=== PATIENT | female | born 1970 | race Caucasian/White ===

== ENCOUNTER 2017-02-10 10:12 | Inpatient (IN) | payer OTHER ==
[~2017-02-10] VITALS: Ht 157.5 cm; Wt 93.0 kg
[2017-02-10] MEDS ORDERED: NITROGLYCERIN 0.4MG TABLET SL SL ONE (10:45)
[2017-02-10] MEDS ORDERED: ASPIRIN 81MG TABLET PO ONE (10:45)
[2017-02-10 11:27] LABS: BASOPHILS % 0.7 % (0.0-2.0); HEMATOCRIT. 28.5 % (36.0-48.0); HEMOGLOBIN. 8.6 g/dL (12.0-16.0); MEAN CORPUSCULAR HEMOGLOBIN 19.6 pg (28.0-32.0); MEAN CORPUSCULAR VOLUME 64.6 fL (81.0-99.0); MEAN PLATELET VOLUME 6.7 fl (7.4-10.4); MONOCYTES % 4.8 % (2.0-8.0); NEUTROPHILS % 76.5 % (40.0-76.0); PLATELET 493 x1000/uL (130-400); RED BLOOD CELL COUNT 4.41 mill/uL (4.2-5.4); RED CELL DISTRIBUTION WIDTH 18.9 % (11.6-14.6)
[2017-02-10 11:38] LABS: PARTIAL THROMBOPLASTIN TIME 23.1 sec (24.0-34.0)
[2017-02-10] MEDS ORDERED: PANTOPRAZOLE SODIUM 40 MG/VIAL IV ONE (11:45)
[2017-02-10 11:46] LABS: CARBON DIOXIDE 28 mEq/L (21-32); CHLORIDE 105 mEq/L (98-107); TROPONIN I 0.37 ng/mL (0.00-0.04)
[2017-02-10 11:57] LABS: PLATELET ESTIMATE INCREASED
[2017-02-10] MEDS ORDERED: DIPHENHYDRAMINE 50MG/ML VIAL IV PRN (12:00)
[2017-02-10] MEDS ORDERED: NA PHOS,M-B/NA PHOS,DI-BA ENEMA 118ML PR PRN (12:00)
[2017-02-10] MEDS ORDERED: ONDANSETRON HCL 4MG/2ML VIAL IV PRN (12:00)
[2017-02-10] MEDS ORDERED: CLONIDINE 0.1MG TABLET PO PRN (12:00)
[2017-02-10] MEDS ORDERED: MAGNESIUM/ALUMINUM HYDROXIDE/SIMETHICONE 30ML UDC PO PRN (12:00)
[2017-02-10] MEDS ORDERED: IPRATROPIUM/ALBUTEROL 0.5-3(2.5)MG/3ML NEB INH PRN (12:00)
[2017-02-10] MEDS ORDERED: PANTOPRAZOLE SODIUM 40 MG/VIAL IV SCH (12:00)
[2017-02-10] MEDS ORDERED: DOCUSATE SODIUM 100MG CAPSULE PO PRN (12:00)
[2017-02-10] MEDS ORDERED: ACETAMINOPHEN 325MG TABLET PO PRN (12:00)
[2017-02-10] MEDS ORDERED: MORPHINE SULFATE 2 MG/ML CPJ (NOT FOR IM USE) IV PRN (12:00)
[2017-02-10] MEDS ORDERED: NITROGLYCERIN 0.4MG TABLET SL SL PRN (12:00)
[2017-02-10] MEDS ORDERED: LORAZEPAM 2MG/ML CPJ IV PRN (12:00)
[2017-02-10] MEDS ORDERED: GUAIFENESIN 200MG/10ML SUGAR FREE UDC PO PRN (12:00)
[2017-02-10 14:00] VITALS: BP 136/88
[2017-02-10 14:12] VITALS: BP 136/88
[2017-02-10] MEDS: METOPROLOL TARTRATE 25MG TABLET PO SCH ×2 (14:30→21:22)
[2017-02-10] MEDS ORDERED: ENOXAPARIN 100MG/ML SYR SUBCUT SCH (15:00)
[2017-02-10] MEDS ORDERED: ALBU6.7H INH (15:57)
[2017-02-10 16:00] VITALS: BP 106/66
[2017-02-10 16:44] LABS: TOTAL IRON BINDING CAPACITY 507 ug/dL (250-450)
[2017-02-10 18:00] VITALS: BP 112/78
[2017-02-10 18:17] LABS: CREATINE KINASE MB FRACTION 6.4 ng/mL (0.5-3.6)
[2017-02-10 18:21] LABS: TROPONIN I 2.2 ng/mL (0.00-0.04)
[2017-02-10 18:33] LABS: FOLIC ACID (FOLATE) SERUM 11.2 ng/mL (>5.38)
[2017-02-10 20:00] VITALS: BP 111/70
[2017-02-10] MEDS ORDERED: ZOLPIDEM TARTRATE 5MG TABLET PO PRN (21:00)
[2017-02-10] MEDS ORDERED: ENOXAPARIN 60MG/0.6ML SYR SUBCUT SCH (21:00)
[2017-02-10 22:00] VITALS: BP 120/78
[2017-02-10 23:52] LABS: CREATINE KINASE MB FRACTION 6.2 ng/mL (0.5-3.6)
[2017-02-10 23:59] LABS: TROPONIN I 2.9 ng/mL (0.00-0.04)
[2017-02-11] VITALS (11 sets, daily range): BP systolic 92–130; BP diastolic 60–84
[2017-02-11 06:53] LABS: BASOPHILS % 0.6 % (0.0-2.0); EOSINOPHILS % 4.7 % (0.0-5.0); HEMATOCRIT. 27.6 % (36.0-48.0); HEMOGLOBIN. 8.6 g/dL (12.0-16.0); LYMPHOCYTES % 35.9 % (20.0-50.0); MEAN CORPUSCULAR HEMOGLOBIN 20.3 pg (28.0-32.0); MEAN CORPUSCULAR VOLUME 65.5 fL (81.0-99.0); MEAN PLATELET VOLUME 7.3 fl (7.4-10.4); MONOCYTES % 6.1 % (2.0-8.0); NEUTROPHILS % 52.7 % (40.0-76.0); PLATELET 469 x1000/uL (130-400); RED BLOOD CELL COUNT 4.22 mill/uL (4.2-5.4); RED CELL DISTRIBUTION WIDTH 18.6 % (11.6-14.6)
[2017-02-11 07:31] LABS: *AMPHETAMINES SCREEN URINE NEGATIVE (NEGATIVE); *BARBITURATES SCREEN URINE NEGATIVE (NEGATIVE); *BENZODIAZEPINES SCREEN URINE NEGATIVE (NEGATIVE); *COCAINE SCREEN URINE NEGATIVE (NEGATIVE); CANNABINOID URINE SCREEN NEGATIVE (NEGATIVE); METHADONE URINE SCREEN NEGATIVE (NEGATIVE); PHENCYCLIDINE URINE SCREEN NEGATIVE (NEGATIVE)
[2017-02-11 07:42] LABS: OPIATES URINE SCREEN PRESUMTIVE POSITIVE (NEGATIVE)
[2017-02-11 07:59] LABS: CARBON DIOXIDE 27 mEq/L (21-32); CHLORIDE 104 mEq/L (98-107)
[2017-02-11] MEDS: FAMOTIDINE 20MG/2ML VIAL IV SCH ×2 (08:02→20:01)
[2017-02-11] MEDS: TRAMADOL 50MG TABLET PO PRN (08:02)
[2017-02-11] MEDS: ASPIRIN 81MG TABLET PO SCH (08:02)
[2017-02-11] MEDS: METOPROLOL TARTRATE 25MG TABLET PO SCH ×2 (08:03→20:03)
[2017-02-11] MEDS ORDERED: ASPIRIN 325MG EC TABLET PO SCH (09:00)
[2017-02-11] MEDS: DEXT 5%/0.45% NACL 1,000 ML IV SCH ×2 (09:30→19:30)
[2017-02-11] MEDS: IRON SUCROSE COMPLEX 100 MG/5 ML ML IV SCH (13:15)
[2017-02-11] MEDS: ATORVASTATIN CALCIUM 10MG TABLET PO SCH (20:01)
[2017-02-12] VITALS (13 sets, daily range): BP systolic 100–142; BP diastolic 61–79
[2017-02-12 06:14] LABS: CARBON DIOXIDE 26 mEq/L (21-32); CHLORIDE 105 mEq/L (98-107)
[2017-02-12 06:30] LABS: BASOPHILS % 0.7 % (0.0-2.0); EOSINOPHILS % 6.4 % (0.0-5.0); HEMATOCRIT. 27.5 % (36.0-48.0); HEMOGLOBIN. 8.4 g/dL (12.0-16.0); LYMPHOCYTES % 29.4 % (20.0-50.0); MEAN CORPUSCULAR HEMOGLOBIN 20.1 pg (28.0-32.0); MEAN CORPUSCULAR VOLUME 66.1 fL (81.0-99.0); MEAN PLATELET VOLUME 7.1 fl (7.4-10.4); MONOCYTES % 6.8 % (2.0-8.0); NEUTROPHILS % 56.7 % (40.0-76.0); PLATELET 489 x1000/uL (130-400); RED BLOOD CELL COUNT 4.17 mill/uL (4.2-5.4); RED CELL DISTRIBUTION WIDTH 18.4 % (11.6-14.6)
[2017-02-12 06:35] LABS: TROPONIN I 0.79 ng/mL (0.00-0.04)
[2017-02-12] MEDS: IRON SUCROSE COMPLEX 100 MG/5 ML ML IV SCH (08:14)
[2017-02-12] MEDS: FAMOTIDINE 20MG/2ML VIAL IV SCH ×2 (08:14→21:52)
[2017-02-12] MEDS: ASPIRIN 81MG TABLET PO SCH (08:15)
[2017-02-12] MEDS: METOPROLOL TARTRATE 25MG TABLET PO SCH ×2 (08:15→21:00)
[2017-02-12] MEDS: TRAMADOL 50MG TABLET PO PRN (14:17)
[2017-02-12] MEDS: ATORVASTATIN CALCIUM 10MG TABLET PO SCH (21:52)
[2017-02-13] VITALS (34 sets, daily range): BP systolic 88–129; BP diastolic 40–97
[2017-02-13] MEDS: DEXT 5%/0.45% NACL 1,000 ML IV SCH ×3 (03:14→21:36)
[2017-02-13 06:25] LABS: BASOPHILS % 0.7 % (0.0-2.0); EOSINOPHILS % 5.6 % (0.0-5.0); HEMATOCRIT. 26.2 % (36.0-48.0); MEAN CORPUSCULAR HEMOGLOBIN 20.3 pg (28.0-32.0); MEAN CORPUSCULAR VOLUME 66.3 fL (81.0-99.0); MONOCYTES % 7.2 % (2.0-8.0); NEUTROPHILS % 59.5 % (40.0-76.0); PLATELET 477 x1000/uL (130-400); RED BLOOD CELL COUNT 3.95 mill/uL (4.2-5.4); RED CELL DISTRIBUTION WIDTH 18.8 % (11.6-14.6)
[2017-02-13 06:45] LABS: CARBON DIOXIDE 28 mEq/L (21-32); CHLORIDE 107 mEq/L (98-107)
[2017-02-13 07:17] LABS: TROPONIN I 0.63 ng/mL (0.00-0.04)
[2017-02-13] MEDS: FAMOTIDINE 20MG/2ML VIAL IV SCH ×2 (08:29→20:12)
[2017-02-13] MEDS: ASPIRIN 81MG TABLET PO SCH (08:29)
[2017-02-13] MEDS: METOPROLOL TARTRATE 25MG TABLET PO SCH ×3 (08:31→21:40)
[2017-02-13] MEDS: IRON SUCROSE COMPLEX 100 MG/5 ML ML IV SCH (09:35)
[2017-02-13] MEDS ORDERED: HEPARIN SODIUM 1,000 UNIT/1ML VIAL IV ONE (10:37)
[2017-02-13] MEDS ORDERED: ASPIRIN/SOD BICARB/CITRIC ACID 324MG TAB EFF ONE (11:18)
[2017-02-13] MEDS ORDERED: LIDOCAINE HCL 1% 20ML VIAL (Pyxis) INJ ONE (11:38)
[2017-02-13] MEDS ORDERED: MIDAZOLAM HCL 5 MG/5 ML VIAL ONE (11:38)
[2017-02-13] MEDS ORDERED: IODIXANOL 320MG/ML 100 ML BOTTLE IV ONE (11:39)
[2017-02-13] MEDS ORDERED: FENTANYL CITRATE/PF 50MCG/ML 2ML VIAL ONE (11:39)
[2017-02-13] MEDS ORDERED: MORPHINE SULFATE 2 MG/ML CPJ (NOT FOR IM USE) IV PRN (12:00)
[2017-02-13] MEDS ORDERED: ONDANSETRON HCL 4MG/2ML VIAL IV PRN (12:00)
[2017-02-13] MEDS ORDERED: ACETAMINOPHEN 325MG TABLET PO PRN (12:00)
[2017-02-13] MEDS ORDERED: ATROPINE SULFATE 1MG/10ML SYR IV PRN (12:00)
[2017-02-13] MEDS ORDERED: SODIUM CHLORIDE 0.45% 1,000 ML IV ONE (12:16)
[2017-02-13] MEDS: TRAMADOL 50MG TABLET PO PRN (12:51)
[2017-02-13] MEDS: ATORVASTATIN CALCIUM 10MG TABLET PO SCH (20:12)
[2017-02-14] VITALS (7 sets, daily range): BP systolic 100–117; BP diastolic 57–74
[2017-02-14 06:37] LABS: BASOPHILS % 0.5 % (0.0-2.0); EOSINOPHILS % 3.7 % (0.0-5.0); HEMATOCRIT. 30.5 % (36.0-48.0); HEMOGLOBIN. 9.3 g/dL (12.0-16.0); LYMPHOCYTES % 27.2 % (20.0-50.0); MEAN CORPUSCULAR HEMOGLOBIN 20.3 pg (28.0-32.0); MEAN CORPUSCULAR VOLUME 66.9 fL (81.0-99.0); MEAN PLATELET VOLUME 7.2 fl (7.4-10.4); MONOCYTES % 5.3 % (2.0-8.0); NEUTROPHILS % 63.3 % (40.0-76.0); PLATELET 592 x1000/uL (130-400); RED BLOOD CELL COUNT 4.56 mill/uL (4.2-5.4); RED CELL DISTRIBUTION WIDTH 18.8 % (11.6-14.6)
[2017-02-14 06:52] LABS: CARBON DIOXIDE 27 mEq/L (21-32); CHLORIDE 104 mEq/L (98-107); TROPONIN I 0.31 ng/mL (0.00-0.04)
[2017-02-14] MEDS: DEXT 5%/0.45% NACL 1,000 ML IV SCH (07:30)
[2017-02-14] MEDS: METOPROLOL TARTRATE 25MG TABLET PO SCH (08:17)
[2017-02-14] MEDS: FAMOTIDINE 20MG/2ML VIAL IV SCH (08:17)
[2017-02-14] MEDS: ASPIRIN 81MG TABLET PO SCH (08:18)
== END 2017-02-14 10:15 | disposition home or self-care (01) | DRG 281 ==
LOC: ER 10:41 → 3WST 10:59 → EDBEDREQTM 11:02 → EDBEDREQ 11:02 → EDBEDREQSVC 12:14 → EDBEDREQ 12:14 → ENRESERV 13:06
PROVIDERS: ADMIT Internal Medicine; ATTEND Internal Medicine
PROC: 4A023N7 Measurement of Cardiac Sampling and Pressure, Left Heart, Percutaneous Approach (ICD-10-PCS; principal; 2017-02-13)
PROC: B2111ZZ Fluoroscopy of Multiple Coronary Arteries using Low Osmolar Contrast (ICD-10-PCS; 2017-02-13)
DX: I21.4 Non-ST elevation (NSTEMI) myocardial infarction (principal); E44.1 Mild protein-calorie malnutrition; D50.9 Iron deficiency anemia, unspecified; E66.9 Obesity, unspecified; E78.00 Pure hypercholesterolemia, unspecified; E78.5 Hyperlipidemia, unspecified; J45.909 Unspecified asthma, uncomplicated; Z79.82 Long term (current) use of aspirin; E78.1 Pure hyperglyceridemia; Z79.899 Other long term (current) drug therapy; Z68.37 Body mass index [BMI] 37.0-37.9, adult
CPT/HCPCS: 36415; 71010; 76830; 76856; 80048; 80053; 80061; 80305; 82550; 82553; 82607; 82728; 82746; 83036; 83540; 83550; 83690; 83880; 84484; 85025; 85610; 85730; 86850; 86900; 93005; 93306; 93458; 93970; 96374; 96375; 99285; C1760; C1769; C1893; C9113; J1644; J1650; J2250; J2270; J2405; J3010; J3490; Q9967